=== PATIENT | male | born 1970 | race Two or more races ===

== ENCOUNTER 2023-04-19 12:15 | Emergency (ER) | payer OTHER ==
[~2023-04-19] VITALS: Ht 180.3 cm; Wt 120.5 kg
[~2023-04-19 12:15] MED LIST: RISP0.5T39 PO; RISP1TAB98 PO
[2023-04-19 14:44] LABS: BASOPHILS % (AUTO) 0.9 % (0.0-2.0); EOSINOPHILS % (AUTO) 3.2 % (1.0-6.0); HEMATOCRIT 39.9 % (41-53); HEMOGLOBIN 13.2 g/dL (13.5-17.5); LYMPHOCYTES # (AUTO) 1.9 K/uL (1.0-4.8); LYMPHOCYTES % (AUTO) 23.3 % (22.0-44.0); MEAN CORPUSCULAR HGB CONC 33.1 G/dL (31.0-37.0); MEAN CORPUSCULAR VOLUME 88 fL (80-100); MONOCYTES # (AUTO) 0.7 K/uL (0.1-1.0); MONOCYTES % (AUTO) 8.5 % (2.0-9.0); NEUTROPHILS # (AUTO) 5.2 K/uL (1.8-7.7); NEUTROPHILS % (AUTO) 64.1 % (40.0-70.0); PLATELET COUNT (AUTO) 363 K/uL (150-450); RED BLOOD CELL COUNT(AUTO) 4.56 MIL/uL (4.50-5.90); WHITE BLOOD COUNT (AUTO) 8.1 K/uL (4.5-11.0)
[2023-04-19 14:59] LABS: ANION GAP 8 mmol/L (8-16); CARBON DIOXIDE 29 mmol/L (22-29); CHLORIDE 102 mmol/L (98-107); CREATININE 0.82 mg/dL (0.60-1.30); GLOMERULAR FILTR. RATE CALC > 60 mL/min (>60); GLUCOSE,RANDOM 103 mg/dL (70-110); POTASSIUM 3.7 mmol/L (3.5-5.1); SODIUM SERUM 138 mmol/L (136-145); UREA NITROGEN, BLOOD 13 mg/dL (7-18)
[2023-04-19 15:04] LABS: ALANINE AMINOTRANSFERASE 47 U/L (12-78); ALBUMIN 3.4 g/dL (3.4-5.0); ALKALINE PHOSPHATASE 87 U/L (46-116); ASPARTATE AMINOTRANSFERASE 22 U/L (15-37); BILIRUBIN,TOTAL 0.3 mg/dL (0.1-1.0); TOTAL PROTEIN, SERUM 7.5 g/dL (6.4-8.2)
[2023-04-19 15:12] LABS: ALCOHOL, BLOOD (SERUM) < 3 mg/dL (0-10)
[2023-04-19 17:20] LABS: PH,URINE DRUG SCREEN 6.5 (5.0-8.0)
[2023-04-19 17:26] LABS: AMPHET/METH SCREEN,URINE NEGATIVE (NEGATIVE); BARBITURATE SCREEN, URINE NEGATIVE (NEGATIVE); BENZODIAZEPINES SCREEN,URINE NEGATIVE (NEGATIVE); CANNABINOID SCREEN,URINE NEGATIVE (NEGATIVE); COCAINE SCREEN,URINE NEGATIVE (NEGATIVE); METHADONE SCREEN, URINE NEGATIVE (NEGATIVE); OPIATE SCREEN,URINE NEGATIVE (NEGATIVE); PHENCYCLIDINE SCREEN,URINE NEGATIVE (NEGATIVE)
[2023-04-19 17:27] LABS: ALCOHOL, URINE DRUG SCREEN NEGATIVE (NEGATIVE)
[2023-04-19] MEDS ORDERED: HYDROCODONE/ACETAMINOPHEN 5-325 MG TABLET PO ONE (19:00)
[2023-04-20] MEDS ORDERED: ACETAMINOPHEN 500 MG TABLET PO ONE (22:45)
[2023-04-20] MEDS ORDERED: IBUPROFEN 800 MG TABLET PO ONE (22:45)
[2023-04-21] MEDS ORDERED: OXYC5TAB3 PO (13:40)
[2023-04-21] MEDS ORDERED: GABA-1181 PO (13:40)
[2023-04-21] MEDS ORDERED: FOLI-130 PO (13:41)
[2023-04-21 15:57] VITALS: BP 152/97; PULSE 83; RESP 18; TEMP 98
== END 2023-04-21 19:07 | disposition home or self-care (01) ==
LOC: EMS 12:15
DX: Z04.6 Encounter for general psychiatric examination, requested by authority (principal); F17.210 Nicotine dependence, cigarettes, uncomplicated; F12.90 Cannabis use, unspecified, uncomplicated; F15.90 Other stimulant use, unspecified, uncomplicated; Z98.890 Other specified postprocedural states
CPT/HCPCS: 99284; 80053; 85025; 36415; 80307; 93971; G0480; 99283

== ENCOUNTER 2023-05-08 01:58 | Inpatient (IN) | payer OTHER ==
[~2023-05-08] VITALS: Ht 180.3 cm; Wt 100.0 kg
[~2023-05-08 01:58] MED LIST changes: +FOLI-130 PO; +GABA-1181 PO; +OXYC5TAB3 PO; -RISP0.5T39 PO
[2023-05-08 02:21] LABS: BASOPHILS % (AUTO) 0.8 % (0.0-2.0); EOSINOPHILS % (AUTO) 3.3 % (1.0-6.0); HEMATOCRIT 37.4 % (41-53); HEMOGLOBIN 12.4 g/dL (13.5-17.5); LYMPHOCYTES # (AUTO) 2.1 K/uL (1.0-4.8); LYMPHOCYTES % (AUTO) 23.6 % (22.0-44.0); MEAN CORPUSCULAR HEMOGLOBIN 29.2 pg (26.0-34.0); MEAN CORPUSCULAR HGB CONC 33.2 G/dL (31.0-37.0); MEAN CORPUSCULAR VOLUME 88 fL (80-100); MONOCYTES # (AUTO) 0.8 K/uL (0.1-1.0); MONOCYTES % (AUTO) 8.7 % (2.0-9.0); NEUTROPHILS # (AUTO) 5.5 K/uL (1.8-7.7); NEUTROPHILS % (AUTO) 63.6 % (40.0-70.0); PLATELET COUNT (AUTO) 244 K/uL (150-450); RED BLOOD CELL COUNT(AUTO) 4.27 MIL/uL (4.50-5.90); RED CELL DISTRIBUTION WIDTH 13.9 % (11.5-14.5); WHITE BLOOD COUNT (AUTO) 8.7 K/uL (4.5-11.0)
[2023-05-08 02:30] LABS: ANION GAP 5 mmol/L (8-16); CALCIUM, TOTAL 9.1 mg/dL (8.8-10.5); CARBON DIOXIDE 30 mmol/L (22-29); CHLORIDE 99 mmol/L (98-107); CREATININE 0.96 mg/dL (0.60-1.30); GLOMERULAR FILTR. RATE CALC > 60 mL/min (>60); GLUCOSE,RANDOM 122 mg/dL (70-110); POTASSIUM 3.5 mmol/L (3.5-5.1); SODIUM SERUM 134 mmol/L (136-145); UREA NITROGEN, BLOOD 14 mg/dL (7-18)
[2023-05-08 02:35] LABS: ALCOHOL, BLOOD (SERUM) < 3 mg/dL (0-10)
[2023-05-08 02:37] LABS: TROPONIN I-HIGH SENSITIVITY 7 ng/L (<76)
[2023-05-08 02:38] LABS: LACTIC ACID 1.1 mmol/L (0.4-2.0)
[2023-05-08 02:56] LABS: ALANINE AMINOTRANSFERASE 29 U/L (12-78); ALBUMIN 3.2 g/dL (3.4-5.0); ALKALINE PHOSPHATASE 92 U/L (46-116); ASPARTATE AMINOTRANSFERASE 14 U/L (15-37); BILIRUBIN,TOTAL 0.2 mg/dL (0.1-1.0); CREATINE KINASE, TOTAL ONLY 115 U/L (39-308); LIPASE 101 U/L (16-77); TOTAL PROTEIN, SERUM 7.7 g/dL (6.4-8.2)
[2023-05-08] MEDS ORDERED: VANCOMYCIN HCL 1.5 GM in DEXTROSE 5%-WATER 250 ML IV ONE (04:15)
[2023-05-08] MEDS ORDERED: *CLINICAL-CEFEPIME DOSING CLINICAL ONE (06:00)
[2023-05-08] MEDS ORDERED: NALOXONE HCL 1 MG/ML 2 ML SYRINGE IVP ONE (06:00)
[2023-05-08] MEDS ORDERED: ONDANSETRON HCL 4 MG/2 ML VIAL IVP PRN (06:00)
[2023-05-08 07:40] LABS: COVID AG,FIA SOURCE NASAL SWAB
[2023-05-08] MEDS ORDERED: HEPARIN SODIUM,PORCINE 5,000 UNITS/ML VIAL SQ SCH (08:00)
[2023-05-08 08:13] LABS: SARS-COV2 (COVID) ANTIGEN,FIA Negative (Negative)
[2023-05-08] MEDS ORDERED: SODIUM CHLORIDE 0.9% 100 ML ONE (08:34)
[2023-05-08] MEDS ORDERED: IOHEXOL 350 MG/ML 100 ML VIAL ONE (08:34)
[2023-05-08] MEDS: DOCUSATE SODIUM 100 MG CAPSULE PO SCH ×2 (08:50→20:05)
[2023-05-08] MEDS ORDERED: NALOXONE HCL 1 MG/ML 2 ML SYRINGE IVP PRN (09:00)
[2023-05-08 09:01] LABS: APPEARANCE,URINE CLEAR (CLEAR); BILIRUBIN,URINE NEGATIVE (NEGATIVE); COLOR,URINE COLORLESS (YELLOW); GLUCOSE, URINE (UA) NEGATIVE (NEGATIVE); KETONES,URINE NEGATIVE (NEGATIVE); LEUKOCYTE ESTERASE ,URINE NEGATIVE (NEGATIVE); NITRATE,URINE NEGATIVE (NEGATIVE); OCCULT BLOOD,URINE NEGATIVE (NEGATIVE); PH,URINE 6.5 (5.0-8.0); PH,URINE DRUG SCREEN 6.5 (5.0-8.0); PROTEIN,URINE NEGATIVE (NEGATIVE); SPECIFIC GRAVITIY, URINE 1.006 (1.003-1.030); UROBILINOGEN,URINE <=1.0 mg/dL (<=1.0)
[2023-05-08 09:07] LABS: AMPHET/METH SCREEN,URINE NEGATIVE (NEGATIVE); BARBITURATE SCREEN, URINE NEGATIVE (NEGATIVE); BENZODIAZEPINES SCREEN,URINE NEGATIVE (NEGATIVE); CANNABINOID SCREEN,URINE NEGATIVE (NEGATIVE); COCAINE SCREEN,URINE NEGATIVE (NEGATIVE); METHADONE SCREEN, URINE NEGATIVE (NEGATIVE); OPIATE SCREEN,URINE NEGATIVE (NEGATIVE); PHENCYCLIDINE SCREEN,URINE NEGATIVE (NEGATIVE)
[2023-05-08 09:08] LABS: ALCOHOL, URINE DRUG SCREEN NEGATIVE (NEGATIVE)
[2023-05-08 09:10] LABS: BACTERIA,URINE None Seen /HPF (None Seen); RBC,URINE None Seen /HPF (0-2); SQUAMOUS EPITHELIAL CELL,UR None Seen /LPF (None Seen); WBC,URINE None Seen /HPF (0-5)
[2023-05-08] MEDS: CEFEPIME HCL 2 GM in DEXTROSE 5%-WATER 50 ML IV SCH ×2 (11:06→23:33)
[2023-05-08] MEDS ORDERED: APIX5TAB PO (11:57)
[2023-05-08 14:34] VITALS: BP 119/68; PULSE 94; RESP 18; TEMP 98; O2SAT 98
[2023-05-08] MEDS: ACETAMINOPHEN 325 MG TABLET PO PRN (15:29)
[2023-05-08] MEDS ORDERED: HEPARIN SODIUM,PORCINE 5,000 UNITS/ML VIAL IVP PRN (16:15)
[2023-05-08] MEDS: VANCOMYCIN 1GM/WATER(PEG/NADA) 200 ML IV SCH ×2 (16:27→23:40)
[2023-05-08] MEDS ORDERED: SODIUM CHLORIDE 0.9% 1,000 ML ONE (16:34)
[2023-05-08 16:38] LABS: BASOPHILS % (AUTO) 0.9 % (0.0-2.0); EOSINOPHILS % (AUTO) 4.3 % (1.0-6.0); HEMATOCRIT 35.6 % (41-53); HEMOGLOBIN 11.7 g/dL (13.5-17.5); LYMPHOCYTES % (AUTO) 26.6 % (22.0-44.0); MEAN CORPUSCULAR HEMOGLOBIN 28.8 pg (26.0-34.0); MEAN CORPUSCULAR HGB CONC 32.8 G/dL (31.0-37.0); MEAN CORPUSCULAR VOLUME 88 fL (80-100); MONOCYTES # (AUTO) 0.8 K/uL (0.1-1.0); MONOCYTES % (AUTO) 10.2 % (2.0-9.0); NEUTROPHILS # (AUTO) 4.3 K/uL (1.8-7.7); PLATELET COUNT (AUTO) 236 K/uL (150-450); RED BLOOD CELL COUNT(AUTO) 4.06 MIL/uL (4.50-5.90); WHITE BLOOD COUNT (AUTO) 7.4 K/uL (4.5-11.0)
[2023-05-08] MEDS: MORPHINE SULFATE 2 MG/ML SYRINGE IVP PRN (16:45)
[2023-05-08 16:51] LABS: PROTHROMBIN TIME 10.3 SEC (9.4-11.6)
[2023-05-08] MEDS: HEPARIN SODIUM 25000 UNITS/D5W 250 ML IV PRN (18:30)
[2023-05-08 19:21] VITALS: BP 132/67; PULSE 89; RESP 18; TEMP 97.9
[2023-05-08] MEDS ORDERED: INFLUENZA VIRUS VACCINE QVS 2023-24 (6MO+)/PF 60 MCG/0.5 ML SYRINGE IM. ONE (20:45)
[2023-05-08] MEDS ORDERED: NALOXONE HCL 0.4 MG/ML VIAL IVP PRN (21:56)
[2023-05-09] MEDS: MORPHINE SULFATE 2 MG/ML SYRINGE IVP PRN ×3 (00:38→15:54)
[2023-05-09] MEDS: HEPARIN SODIUM,PORCINE 5,000 UNITS/ML VIAL IVP PRN (02:18)
[2023-05-09 05:14] VITALS: BP 114/77; PULSE 80; RESP 20; TEMP 97.7
[2023-05-09 07:41] LABS: BASOPHILS % (AUTO) 0.9 % (0.0-2.0); EOSINOPHILS % (AUTO) 4.3 % (1.0-6.0); HEMATOCRIT 36.9 % (41-53); HEMOGLOBIN 12.2 g/dL (13.5-17.5); LYMPHOCYTES # (AUTO) 1.8 K/uL (1.0-4.8); LYMPHOCYTES % (AUTO) 23.1 % (22.0-44.0); MEAN CORPUSCULAR HEMOGLOBIN 28.8 pg (26.0-34.0); MEAN CORPUSCULAR HGB CONC 32.9 G/dL (31.0-37.0); MEAN CORPUSCULAR VOLUME 87 fL (80-100); MONOCYTES # (AUTO) 0.7 K/uL (0.1-1.0); MONOCYTES % (AUTO) 8.9 % (2.0-9.0); NEUTROPHILS # (AUTO) 4.8 K/uL (1.8-7.7); NEUTROPHILS % (AUTO) 62.8 % (40.0-70.0); PLATELET COUNT (AUTO) 256 K/uL (150-450); RED BLOOD CELL COUNT(AUTO) 4.22 MIL/uL (4.50-5.90); RED CELL DISTRIBUTION WIDTH 13.6 % (11.5-14.5); WHITE BLOOD COUNT (AUTO) 7.6 K/uL (4.5-11.0)
[2023-05-09 07:53] LABS: ANION GAP 7 mmol/L (8-16); CALCIUM, TOTAL 9.1 mg/dL (8.8-10.5); CARBON DIOXIDE 27 mmol/L (22-29); CHLORIDE 98 mmol/L (98-107); CREATININE 0.71 mg/dL (0.60-1.30); GLOMERULAR FILTR. RATE CALC > 60 mL/min (>60); GLUCOSE,RANDOM 119 mg/dL (70-110); POTASSIUM 3.5 mmol/L (3.5-5.1); SODIUM SERUM 132 mmol/L (136-145); UREA NITROGEN, BLOOD 9 mg/dL (7-18)
[2023-05-09] MEDS: VANCOMYCIN 1GM/WATER(PEG/NADA) 200 ML IV SCH ×3 (08:46→23:33)
[2023-05-09] MEDS: DOCUSATE SODIUM 100 MG CAPSULE PO SCH ×2 (08:51→20:08)
[2023-05-09 09:00] VITALS: BP 109/58; PULSE 92; RESP 19; TEMP 97.3
[2023-05-09] MEDS: CEFEPIME HCL 2 GM in DEXTROSE 5%-WATER 50 ML IV SCH ×2 (12:48→22:58)
[2023-05-09 16:19] VITALS: BP 126/75; PULSE 88; RESP 16; TEMP 98.6
[2023-05-09] MEDS ORDERED: MORPHINE SULFATE 2 MG/ML SYRINGE IVP ONE (20:15)
[2023-05-10] MEDS: HEPARIN SODIUM 25000 UNITS/D5W 250 ML IV PRN ×2 (02:10→15:45)
[2023-05-10] MEDS: MORPHINE SULFATE 2 MG/ML SYRINGE IVP PRN ×2 (04:35→15:48)
[2023-05-10 05:08] VITALS: BP 113/77; PULSE 77; RESP 20; TEMP 98
[2023-05-10 08:11] LABS: ANION GAP 8 mmol/L (8-16); CALCIUM, TOTAL 9.3 mg/dL (8.8-10.5); CARBON DIOXIDE 27 mmol/L (22-29); CHLORIDE 98 mmol/L (98-107); CREATININE 0.71 mg/dL (0.60-1.30); GLOMERULAR FILTR. RATE CALC > 60 mL/min (>60); GLUCOSE,RANDOM 113 mg/dL (70-110); POTASSIUM 3.7 mmol/L (3.5-5.1); SODIUM SERUM 133 mmol/L (136-145); UREA NITROGEN, BLOOD 11 mg/dL (7-18); VANCOMYCIN,RANDOM 10.2 mcg/mL (25.0-50.0)
[2023-05-10] MEDS: VANCOMYCIN 1GM/WATER(PEG/NADA) 200 ML IV SCH ×2 (08:34→16:14)
[2023-05-10] MEDS: DOCUSATE SODIUM 100 MG CAPSULE PO SCH ×2 (08:37→20:20)
[2023-05-10 08:41] VITALS: BP 112/68; PULSE 85; RESP 19; TEMP 97.8
[2023-05-10] MEDS ORDERED: LEVO750T68 PO (11:44)
[2023-05-10] MEDS ORDERED: APIX5TAB PO (11:44)
[2023-05-10] MEDS: CEFEPIME HCL 2 GM in DEXTROSE 5%-WATER 50 ML IV SCH ×2 (11:46→23:07)
[2023-05-10 20:00] VITALS: BP 118/87; PULSE 85; RESP 18; TEMP 97.5
[2023-05-10] MEDS: ACETAMINOPHEN 325 MG TABLET PO PRN (20:32)
[2023-05-11] MEDS: MORPHINE SULFATE 2 MG/ML SYRINGE IVP PRN ×3 (00:14→20:48)
[2023-05-11] MEDS: VANCOMYCIN 1GM/WATER(PEG/NADA) 200 ML IV SCH ×4 (00:17→23:41)
[2023-05-11 04:00] VITALS: BP 114/70; PULSE 86; RESP 16; TEMP 97.6
[2023-05-11] MEDS: HEPARIN SODIUM 25000 UNITS/D5W 250 ML IV PRN ×3 (05:06→18:19)
[2023-05-11 08:26] VITALS: BP 105/75; PULSE 77; RESP 20; TEMP 98.5
[2023-05-11] MEDS: DOCUSATE SODIUM 100 MG CAPSULE PO SCH ×2 (08:54→20:39)
[2023-05-11] MEDS: CEFEPIME HCL 2 GM in DEXTROSE 5%-WATER 50 ML IV SCH ×2 (12:45→23:04)
[2023-05-11 14:21] LABS: ANION GAP 8 mmol/L (8-16); CARBON DIOXIDE 26 mmol/L (22-29); CHLORIDE 100 mmol/L (98-107); CREATININE 0.91 mg/dL (0.60-1.30); GLOMERULAR FILTR. RATE CALC > 60 mL/min (>60); GLUCOSE,RANDOM 140 mg/dL (70-110); POTASSIUM 4.2 mmol/L (3.5-5.1); SODIUM SERUM 134 mmol/L (136-145); UREA NITROGEN, BLOOD 13 mg/dL (7-18)
[2023-05-11 14:29] LABS: CALCIUM, TOTAL 9.4 mg/dL (8.8-10.5)
[2023-05-11 16:11] VITALS: BP 117/55; PULSE 85; RESP 19; TEMP 98
[2023-05-11] MEDS: HEPARIN SODIUM,PORCINE 5,000 UNITS/ML VIAL IVP PRN (16:11)
[2023-05-11 17:47] LABS: BASOPHILS % (AUTO) 1.5 % (0.0-2.0); EOSINOPHILS % (AUTO) 4.4 % (1.0-6.0); HEMATOCRIT 40.2 % (41-53); HEMOGLOBIN 13.2 g/dL (13.5-17.5); LYMPHOCYTES # (AUTO) 2.1 K/uL (1.0-4.8); MEAN CORPUSCULAR HEMOGLOBIN 28.9 pg (26.0-34.0); MEAN CORPUSCULAR HGB CONC 32.8 G/dL (31.0-37.0); MEAN CORPUSCULAR VOLUME 88 fL (80-100); MONOCYTES # (AUTO) 0.7 K/uL (0.1-1.0); MONOCYTES % (AUTO) 10.5 % (2.0-9.0); NEUTROPHILS # (AUTO) 3.7 K/uL (1.8-7.7); NEUTROPHILS % (AUTO) 53.6 % (40.0-70.0); PLATELET COUNT (AUTO) 288 K/uL (150-450); RED BLOOD CELL COUNT(AUTO) 4.57 MIL/uL (4.50-5.90); RED CELL DISTRIBUTION WIDTH 14.1 % (11.5-14.5)
[2023-05-11 19:20] VITALS: BP 131/89; PULSE 79; RESP 20; TEMP 98.3
[2023-05-11] MEDS: HYDROGEN PEROXIDE 473 ML SOLUTION TP SCH (20:39)
[2023-05-12] MEDS: HEPARIN SODIUM 25000 UNITS/D5W 250 ML IV PRN ×2 (02:55→06:25)
[2023-05-12 04:19] VITALS: BP 113/63; PULSE 64; RESP 20; TEMP 98.1
[2023-05-12 07:52] LABS: ANION GAP 10 mmol/L (8-16); CALCIUM, TOTAL 9.1 mg/dL (8.8-10.5); CARBON DIOXIDE 26 mmol/L (22-29); CHLORIDE 101 mmol/L (98-107); CREATININE 0.88 mg/dL (0.60-1.30); GLOMERULAR FILTR. RATE CALC > 60 mL/min (>60); GLUCOSE,RANDOM 123 mg/dL (70-110); POTASSIUM 3.9 mmol/L (3.5-5.1); SODIUM SERUM 136 mmol/L (136-145); UREA NITROGEN, BLOOD 12 mg/dL (7-18)
[2023-05-12 08:11] VITALS: BP 112/63; PULSE 85; RESP 20; TEMP 97.8
[2023-05-12] MEDS: DOCUSATE SODIUM 100 MG CAPSULE PO SCH ×2 (08:23→20:50)
[2023-05-12] MEDS: HYDROGEN PEROXIDE 473 ML SOLUTION TP SCH ×2 (08:23→20:51)
[2023-05-12] MEDS: VANCOMYCIN 1GM/WATER(PEG/NADA) 200 ML IV SCH ×2 (08:23→16:43)
[2023-05-12] MEDS: MORPHINE SULFATE 2 MG/ML SYRINGE IVP PRN ×2 (09:19→17:51)
[2023-05-12] MEDS: CEFEPIME HCL 2 GM in DEXTROSE 5%-WATER 50 ML IV SCH ×2 (10:37→23:33)
[2023-05-12 16:18] VITALS: BP 124/74; PULSE 102; RESP 20; TEMP 98.2
[2023-05-12 19:40] VITALS: BP 118/58; PULSE 91; RESP 18; TEMP 99
[2023-05-12] MEDS: ACETAMINOPHEN 325 MG TABLET PO PRN (20:50)
[2023-05-12] MEDS: APIXABAN 5 MG TABLET PO SCH (23:32)
[2023-05-13] MEDS: VANCOMYCIN 1GM/WATER(PEG/NADA) 200 ML IV SCH ×3 (00:56→18:39)
[2023-05-13] MEDS: MORPHINE SULFATE 2 MG/ML SYRINGE IVP PRN ×3 (01:36→19:38)
[2023-05-13 04:05] VITALS: BP 136/77; PULSE 90; RESP 18; TEMP 98.1
[2023-05-13 08:33] LABS: ANION GAP 7 mmol/L (8-16); CALCIUM, TOTAL 9.6 mg/dL (8.8-10.5); CARBON DIOXIDE 28 mmol/L (22-29); CHLORIDE 99 mmol/L (98-107); GLOMERULAR FILTR. RATE CALC > 60 mL/min (>60); GLUCOSE,RANDOM 112 mg/dL (70-110); POTASSIUM 4.3 mmol/L (3.5-5.1); SODIUM SERUM 134 mmol/L (136-145); UREA NITROGEN, BLOOD 14 mg/dL (7-18); VANCOMYCIN,RANDOM 16.6 mcg/mL (25.0-50.0)
[2023-05-13] MEDS: APIXABAN 5 MG TABLET PO SCH ×2 (08:36→21:03)
[2023-05-13] MEDS: DOCUSATE SODIUM 100 MG CAPSULE PO SCH ×2 (08:36→21:03)
[2023-05-13] MEDS: HYDROGEN PEROXIDE 473 ML SOLUTION TP SCH ×2 (08:37→21:03)
[2023-05-13 09:03] VITALS: BP 129/76; PULSE 86; RESP 18; TEMP 98.2
[2023-05-13] MEDS: CEFEPIME HCL 2 GM in DEXTROSE 5%-WATER 50 ML IV SCH ×2 (11:10→22:57)
[2023-05-13 16:36] VITALS: BP 106/82; PULSE 93; RESP 18; TEMP 98.5
[2023-05-13 20:49] VITALS: BP 112/67; PULSE 86; RESP 18; TEMP 98.5
[2023-05-14] MEDS: VANCOMYCIN 1GM/WATER(PEG/NADA) 200 ML IV SCH ×4 (00:02→23:15)
[2023-05-14] MEDS: MORPHINE SULFATE 2 MG/ML SYRINGE IVP PRN ×3 (05:46→22:13)
[2023-05-14 05:48] VITALS: BP 122/80; PULSE 88; RESP 20; TEMP 98.3
[2023-05-14 07:02] LABS: BASOPHILS % (AUTO) 0.7 % (0.0-2.0); EOSINOPHILS % (AUTO) 4.8 % (1.0-6.0); HEMATOCRIT 39.8 % (41-53); HEMOGLOBIN 13.4 g/dL (13.5-17.5); LYMPHOCYTES # (AUTO) 1.7 K/uL (1.0-4.8); LYMPHOCYTES % (AUTO) 20.4 % (22.0-44.0); MEAN CORPUSCULAR HEMOGLOBIN 29.3 pg (26.0-34.0); MEAN CORPUSCULAR HGB CONC 33.6 G/dL (31.0-37.0); MEAN CORPUSCULAR VOLUME 87 fL (80-100); MONOCYTES # (AUTO) 1.1 K/uL (0.1-1.0); MONOCYTES % (AUTO) 13.1 % (2.0-9.0); NEUTROPHILS # (AUTO) 5.1 K/uL (1.8-7.7); PLATELET COUNT (AUTO) 294 K/uL (150-450); RED BLOOD CELL COUNT(AUTO) 4.56 MIL/uL (4.50-5.90); RED CELL DISTRIBUTION WIDTH 13.9 % (11.5-14.5); WHITE BLOOD COUNT (AUTO) 8.3 K/uL (4.5-11.0)
[2023-05-14 07:06] LABS: ANION GAP 11 mmol/L (8-16); CALCIUM, TOTAL 9.1 mg/dL (8.8-10.5); CARBON DIOXIDE 25 mmol/L (22-29); CHLORIDE 100 mmol/L (98-107); CREATININE 0.84 mg/dL (0.60-1.30); GLOMERULAR FILTR. RATE CALC > 60 mL/min (>60); GLUCOSE,RANDOM 123 mg/dL (70-110); SODIUM SERUM 136 mmol/L (136-145); UREA NITROGEN, BLOOD 14 mg/dL (7-18)
[2023-05-14] MEDS: ACETAMINOPHEN 325 MG TABLET PO PRN ×2 (07:50→15:28)
[2023-05-14] MEDS: APIXABAN 5 MG TABLET PO SCH ×2 (08:17→21:00)
[2023-05-14] MEDS: DOCUSATE SODIUM 100 MG CAPSULE PO SCH ×2 (08:17→21:00)
[2023-05-14] MEDS: HYDROGEN PEROXIDE 473 ML SOLUTION TP SCH ×2 (08:18→21:02)
[2023-05-14 08:33] VITALS: BP 124/75; PULSE 91; RESP 20; TEMP 98.3
[2023-05-14] MEDS: CEFEPIME HCL 2 GM in DEXTROSE 5%-WATER 50 ML IV SCH ×2 (11:12→22:13)
[2023-05-14 16:07] VITALS: BP 114/63; PULSE 96; RESP 20; TEMP 97.6
[2023-05-14 19:45] VITALS: BP 144/85; PULSE 99; RESP 20; TEMP 99.2
[2023-05-15 04:10] VITALS: BP 122/75; PULSE 96; RESP 18; TEMP 98.3
[2023-05-15] MEDS: MORPHINE SULFATE 2 MG/ML SYRINGE IVP PRN ×3 (06:25→23:32)
[2023-05-15 07:50] LABS: ANION GAP 11 mmol/L (8-16); CALCIUM, TOTAL 8.9 mg/dL (8.8-10.5); CARBON DIOXIDE 23 mmol/L (22-29); CHLORIDE 101 mmol/L (98-107); CREATININE 0.85 mg/dL (0.60-1.30); GLOMERULAR FILTR. RATE CALC > 60 mL/min (>60); GLUCOSE,RANDOM 145 mg/dL (70-110); POTASSIUM 3.7 mmol/L (3.5-5.1); SODIUM SERUM 135 mmol/L (136-145); UREA NITROGEN, BLOOD 15 mg/dL (7-18)
[2023-05-15] MEDS: APIXABAN 5 MG TABLET PO SCH ×2 (07:58→20:15)
[2023-05-15] MEDS: VANCOMYCIN 1GM/WATER(PEG/NADA) 200 ML IV SCH ×3 (07:58→23:31)
[2023-05-15] MEDS: DOCUSATE SODIUM 100 MG CAPSULE PO SCH ×2 (07:58→20:15)
[2023-05-15 08:18] LABS: VANCOMYCIN,RANDOM 16.1 mcg/mL (25.0-50.0)
[2023-05-15] MEDS: ACETAMINOPHEN 325 MG TABLET PO PRN ×2 (09:47→20:17)
[2023-05-15] MEDS: CEFEPIME HCL 2 GM in DEXTROSE 5%-WATER 50 ML IV SCH ×2 (10:56→22:47)
[2023-05-15] MEDS: HYDROGEN PEROXIDE 473 ML SOLUTION TP SCH ×2 (15:33→20:20)
[2023-05-15 16:25] VITALS: BP 108/71; PULSE 89; RESP 19; TEMP 97.9
[2023-05-15 19:48] VITALS: BP 118/62; PULSE 94; RESP 20; TEMP 97.9
[2023-05-15 20:12] VITALS: BP 118/62; PULSE 94; RESP 20; TEMP 97.9
[2023-05-16 05:14] VITALS: BP 116/63; PULSE 90; RESP 20; TEMP 98.1
[2023-05-16 08:18] LABS: ANION GAP 7 mmol/L (8-16); CALCIUM, TOTAL 8.6 mg/dL (8.8-10.5); CARBON DIOXIDE 27 mmol/L (22-29); CHLORIDE 103 mmol/L (98-107); CREATININE 0.82 mg/dL (0.60-1.30); GLOMERULAR FILTR. RATE CALC > 60 mL/min (>60); GLUCOSE,RANDOM 110 mg/dL (70-110); POTASSIUM 3.9 mmol/L (3.5-5.1); SODIUM SERUM 137 mmol/L (136-145); UREA NITROGEN, BLOOD 14 mg/dL (7-18)
[2023-05-16] MEDS: VANCOMYCIN 1GM/WATER(PEG/NADA) 200 ML IV SCH ×2 (09:18→17:20)
[2023-05-16] MEDS: APIXABAN 5 MG TABLET PO SCH ×2 (09:18→20:11)
[2023-05-16] MEDS: DOCUSATE SODIUM 100 MG CAPSULE PO SCH ×2 (09:18→20:11)
[2023-05-16] MEDS: MORPHINE SULFATE 2 MG/ML SYRINGE IVP PRN ×2 (09:19→17:21)
[2023-05-16] MEDS: HYDROGEN PEROXIDE 473 ML SOLUTION TP SCH ×2 (09:19→23:07)
[2023-05-16 10:30] VITALS: BP 126/78; PULSE 81; RESP 20; TEMP 97.9
[2023-05-16] MEDS: CEFEPIME HCL 2 GM in DEXTROSE 5%-WATER 50 ML IV SCH ×2 (11:52→23:06)
[2023-05-16 20:15] VITALS: BP 126/88; PULSE 95; RESP 20; TEMP 97.5
[2023-05-16] MEDS: ACETAMINOPHEN 325 MG TABLET PO PRN (23:06)
[2023-05-17] MEDS: VANCOMYCIN 1GM/WATER(PEG/NADA) 200 ML IV SCH ×4 (00:15→23:31)
[2023-05-17] MEDS: MORPHINE SULFATE 2 MG/ML SYRINGE IVP PRN ×3 (02:56→19:53)
[2023-05-17 03:03] VITALS: BP 114/71; PULSE 79; RESP 19; TEMP 98.1
[2023-05-17 07:10] LABS: ANION GAP 10 mmol/L (8-16); CALCIUM, TOTAL 8.7 mg/dL (8.8-10.5); CARBON DIOXIDE 26 mmol/L (22-29); CHLORIDE 105 mmol/L (98-107); CREATININE 0.79 mg/dL (0.60-1.30); GLOMERULAR FILTR. RATE CALC > 60 mL/min (>60); GLUCOSE,RANDOM 100 mg/dL (70-110); POTASSIUM 3.8 mmol/L (3.5-5.1); SODIUM SERUM 141 mmol/L (136-145); UREA NITROGEN, BLOOD 13 mg/dL (7-18)
[2023-05-17 07:54] VITALS: BP 122/74; PULSE 82; RESP 18; TEMP 98.2
[2023-05-17] MEDS: DOCUSATE SODIUM 100 MG CAPSULE PO SCH ×2 (09:02→20:04)
[2023-05-17] MEDS: HYDROGEN PEROXIDE 473 ML SOLUTION TP SCH ×2 (09:02→20:05)
[2023-05-17] MEDS: APIXABAN 5 MG TABLET PO SCH ×2 (09:03→20:04)
[2023-05-17] MEDS: ACETAMINOPHEN 325 MG TABLET PO PRN ×2 (09:08→14:26)
[2023-05-17] MEDS: CEFEPIME HCL 2 GM in DEXTROSE 5%-WATER 50 ML IV SCH ×2 (10:50→23:03)
[2023-05-17 16:01] VITALS: BP 120/62; PULSE 81; RESP 20; TEMP 97.9
[2023-05-17] MEDS ORDERED: SODIUM CHLORIDE 0.9% 500 ML IV ONE (16:17)
[2023-05-17 19:15] VITALS: BP 140/82; PULSE 94; RESP 20; TEMP 98.5
[2023-05-18 03:55] VITALS: BP 124/67; PULSE 84; RESP 20; TEMP 97.7
[2023-05-18] MEDS: MORPHINE SULFATE 2 MG/ML SYRINGE IVP PRN ×3 (04:06→20:17)
[2023-05-18 07:44] LABS: CARBON DIOXIDE 28 mmol/L (22-29); CHLORIDE 104 mmol/L (98-107); SODIUM SERUM 139 mmol/L (136-145)
[2023-05-18 07:45] LABS: ANION GAP 7 mmol/L (8-16); CALCIUM, TOTAL 9.1 mg/dL (8.8-10.5); CREATININE 0.76 mg/dL (0.60-1.30); GLOMERULAR FILTR. RATE CALC > 60 mL/min (>60); GLUCOSE,RANDOM 100 mg/dL (70-110); UREA NITROGEN, BLOOD 11 mg/dL (7-18)
[2023-05-18 08:12] VITALS: BP 121/74; PULSE 85; RESP 20; TEMP 98.2
[2023-05-18] MEDS: VANCOMYCIN 1GM/WATER(PEG/NADA) 200 ML IV SCH ×2 (08:36→16:15)
[2023-05-18] MEDS: DOCUSATE SODIUM 100 MG CAPSULE PO SCH ×2 (08:36→20:16)
[2023-05-18] MEDS: HYDROGEN PEROXIDE 473 ML SOLUTION TP SCH ×2 (08:36→20:17)
[2023-05-18] MEDS: APIXABAN 5 MG TABLET PO SCH ×2 (08:36→20:16)
[2023-05-18] MEDS: ACETAMINOPHEN 325 MG TABLET PO PRN ×2 (08:40→18:04)
[2023-05-18] MEDS: CEFEPIME HCL 2 GM in DEXTROSE 5%-WATER 50 ML IV SCH ×2 (11:23→22:56)
[2023-05-18 15:47] VITALS: BP 127/63; PULSE 89; RESP 20; TEMP 98.3
[2023-05-18] MEDS ORDERED: SODIUM CL IRRIG SOLN BOTTLE 250 ML IRRIG ONE (16:29)
[2023-05-18 20:07] VITALS: BP 113/76; PULSE 95; RESP 19; TEMP 98.5
[2023-05-19] MEDS: VANCOMYCIN 1GM/WATER(PEG/NADA) 200 ML IV SCH ×4 (00:09→23:12)
[2023-05-19] MEDS: ACETAMINOPHEN 325 MG TABLET PO PRN ×2 (01:20→23:17)
[2023-05-19 04:15] VITALS: BP 115/69; PULSE 80; RESP 18; TEMP 97.9
[2023-05-19] MEDS: MORPHINE SULFATE 2 MG/ML SYRINGE IVP PRN ×3 (04:27→21:01)
[2023-05-19 07:25] LABS: ANION GAP 10 mmol/L (8-16); CALCIUM, TOTAL 9.6 mg/dL (8.8-10.5); CARBON DIOXIDE 27 mmol/L (22-29); CHLORIDE 102 mmol/L (98-107); CREATININE 0.79 mg/dL (0.60-1.30); GLOMERULAR FILTR. RATE CALC > 60 mL/min (>60); GLUCOSE,RANDOM 113 mg/dL (70-110); POTASSIUM 3.9 mmol/L (3.5-5.1); SODIUM SERUM 139 mmol/L (136-145); UREA NITROGEN, BLOOD 11 mg/dL (7-18); VANCOMYCIN,RANDOM 15.1 mcg/mL (25.0-50.0)
[2023-05-19 07:32] VITALS: BP 124/51; PULSE 98; RESP 19; TEMP 98.2
[2023-05-19] MEDS: DOCUSATE SODIUM 100 MG CAPSULE PO SCH ×2 (10:11→20:08)
[2023-05-19] MEDS: APIXABAN 5 MG TABLET PO SCH ×2 (10:11→20:08)
[2023-05-19] MEDS: HYDROGEN PEROXIDE 473 ML SOLUTION TP SCH ×2 (10:11→20:08)
[2023-05-19] MEDS: CEFEPIME HCL 2 GM in DEXTROSE 5%-WATER 50 ML IV SCH ×2 (12:44→22:09)
[2023-05-19 15:29] VITALS: BP 113/76; PULSE 87; RESP 20; TEMP 98.2
[2023-05-19 20:11] VITALS: BP 118/84; PULSE 90; RESP 18; TEMP 98.6
[2023-05-20 04:51] VITALS: BP 109/63; PULSE 85; RESP 18; TEMP 97.9
[2023-05-20] MEDS: MORPHINE SULFATE 2 MG/ML SYRINGE IVP PRN (05:06)
[2023-05-20 08:04] VITALS: BP 109/69; PULSE 84; RESP 19; TEMP 98.1
[2023-05-20] MEDS: VANCOMYCIN 1GM/WATER(PEG/NADA) 200 ML IV SCH (08:11)
[2023-05-20] MEDS: APIXABAN 5 MG TABLET PO SCH (08:11)
[2023-05-20] MEDS: DOCUSATE SODIUM 100 MG CAPSULE PO SCH (08:12)
[2023-05-20] MEDS: HYDROGEN PEROXIDE 473 ML SOLUTION TP SCH (08:12)
[2023-05-20] MEDS: CEFEPIME HCL 2 GM in DEXTROSE 5%-WATER 50 ML IV SCH (12:04)
== END 2023-05-20 19:53 | disposition home or self-care (01) | DRG 602 ==
LOC: EMS 01:59 → 6S 05:55 → 6N 12:19
PROVIDERS: ADMIT Internal Medicine; ATTEND Internal Medicine
PROC: 05HC33Z Insertion of Infusion Device into Left Basilic Vein, Percutaneous Approach (ICD-10-PCS; principal; 2023-05-13)
DX: L03.115 Cellulitis of right lower limb (principal); G92.8 Other toxic encephalopathy; I82.431 Acute embolism and thrombosis of right popliteal vein; Z59.00 Homelessness unspecified; Z20.822 Contact with and (suspected) exposure to COVID-19; M79.89 Other specified soft tissue disorders; S82.291G Other fracture of shaft of right tibia, subsequent encounter for closed fracture with delayed healing; K21.9 Gastro-esophageal reflux disease without esophagitis; X58.XXXD Exposure to other specified factors, subsequent encounter; F17.200 Nicotine dependence, unspecified, uncomplicated; F11.10 Opioid abuse, uncomplicated; F19.10 Other psychoactive substance abuse, uncomplicated; Z79.899 Other long term (current) drug therapy; Z79.01 Long term (current) use of anticoagulants; Z91.148 Patient's other noncompliance with medication regimen for other reason
CPT/HCPCS: 36245; 36569; 73701; 76937; 80048; 80053; 80202; 80307; 81001; 82271; 82550; 83605; 83690; 83735; 84484; 85025; 85610; 85730; 87040; 90686; 93971; 97162; 97165; 97535; 99285; G0480; J0692; J1644; J2270; J2310; J3370; J7030; J7040; J7050; J7060; Q9967

== ENCOUNTER 2023-06-06 05:28 | Emergency (ER) | payer OTHER ==
[~2023-06-06] VITALS: Ht 188 cm; Wt 113.6 kg
[~2023-06-06 05:28] MED LIST changes: +APIX5TAB PO; +LEVO750T68 PO
[2023-06-06 06:36] LABS: BASOPHILS % (AUTO) 0.6 % (0.0-2.0); EOSINOPHILS % (AUTO) 1.8 % (1.0-6.0); HEMATOCRIT 36.3 % (41-53); HEMOGLOBIN 12.2 g/dL (13.5-17.5); LYMPHOCYTES # (AUTO) 1.2 K/uL (1.0-4.8); LYMPHOCYTES % (AUTO) 16.1 % (22.0-44.0); MEAN CORPUSCULAR HEMOGLOBIN 28.7 pg (26.0-34.0); MEAN CORPUSCULAR HGB CONC 33.7 G/dL (31.0-37.0); MEAN CORPUSCULAR VOLUME 85 fL (80-100); MONOCYTES # (AUTO) 0.8 K/uL (0.1-1.0); MONOCYTES % (AUTO) 10.4 % (2.0-9.0); NEUTROPHILS # (AUTO) 5.5 K/uL (1.8-7.7); NEUTROPHILS % (AUTO) 71.1 % (40.0-70.0); PLATELET COUNT (AUTO) 262 K/uL (150-450); RED BLOOD CELL COUNT(AUTO) 4.26 MIL/uL (4.50-5.90); RED CELL DISTRIBUTION WIDTH 14.4 % (11.5-14.5); WHITE BLOOD COUNT (AUTO) 7.7 K/uL (4.5-11.0)
[2023-06-06 06:46] LABS: COVID AG,FIA SOURCE NASAL SWAB
[2023-06-06 06:49] LABS: ANION GAP 6 mmol/L (8-16); CALCIUM, TOTAL 8.6 mg/dL (8.8-10.5); CARBON DIOXIDE 28 mmol/L (22-29); CHLORIDE 101 mmol/L (98-107); CREATININE 0.99 mg/dL (0.60-1.30); GLOMERULAR FILTR. RATE CALC > 60 mL/min (>60); GLUCOSE,RANDOM 103 mg/dL (70-110); POTASSIUM 3.1 mmol/L (3.5-5.1); SODIUM SERUM 135 mmol/L (136-145); UREA NITROGEN, BLOOD 15 mg/dL (7-18)
[2023-06-06 06:57] LABS: ALCOHOL, BLOOD (SERUM) < 3 mg/dL (0-10)
[2023-06-06 07:10] LABS: SARS-COV2 (COVID) ANTIGEN,FIA Negative (Negative)
[2023-06-06 07:21] LABS: ALANINE AMINOTRANSFERASE 35 U/L (12-78); ALBUMIN 3.3 g/dL (3.4-5.0); ALKALINE PHOSPHATASE 72 U/L (46-116); ASPARTATE AMINOTRANSFERASE 22 U/L (15-37); BILIRUBIN,TOTAL 0.3 mg/dL (0.1-1.0); CREATINE KINASE, TOTAL ONLY 215 U/L (39-308); TOTAL PROTEIN, SERUM 7.6 g/dL (6.4-8.2)
[2023-06-06] MEDS ORDERED: POTASSIUM CHLORIDE 10% 40 MEQ/30 ML LIQUID UDCUP PO ONE (07:30)
[2023-06-06] MEDS ORDERED: IBUPROFEN 600 MG TABLET PO ONE (08:30)
[2023-06-06] MEDS ORDERED: LEVOFLOXACIN 500 MG TABLET PO ONE (09:15)
[2023-06-06] MEDS ORDERED: APIXABAN 5 MG TABLET PO ONE (10:30)
[2023-06-06 17:24] LABS: PH,URINE DRUG SCREEN 5.5 (5.0-8.0)
[2023-06-06 17:31] LABS: ALCOHOL, URINE DRUG SCREEN NEGATIVE (NEGATIVE); AMPHET/METH SCREEN,URINE POSITIVE (NEGATIVE); BARBITURATE SCREEN, URINE NEGATIVE (NEGATIVE); BENZODIAZEPINES SCREEN,URINE NEGATIVE (NEGATIVE); CANNABINOID SCREEN,URINE NEGATIVE (NEGATIVE); COCAINE SCREEN,URINE NEGATIVE (NEGATIVE); METHADONE SCREEN, URINE NEGATIVE (NEGATIVE); OPIATE SCREEN,URINE NEGATIVE (NEGATIVE); PHENCYCLIDINE SCREEN,URINE NEGATIVE (NEGATIVE)
[2023-06-06 21:35] VITALS: BP 116/72; PULSE 81; RESP 18; TEMP 97.7
== END 2023-06-06 22:07 | disposition admitted as inpatient to this hospital (09) ==
LOC: EMS 05:38
DX: F23 Brief psychotic disorder (principal); F15.10 Other stimulant abuse, uncomplicated; I82.401 Acute embolism and thrombosis of unspecified deep veins of right lower extremity; L03.115 Cellulitis of right lower limb; E87.6 Hypokalemia; F17.210 Nicotine dependence, cigarettes, uncomplicated; F12.90 Cannabis use, unspecified, uncomplicated; Z98.890 Other specified postprocedural states; Z20.822 Contact with and (suspected) exposure to COVID-19
CPT/HCPCS: 99291; 93971; 87426; 80053; 82550; 85025; 36415; 73590; 80307; G0480